=== PATIENT | female | born 2000 | race Caucasian/White ===

== ENCOUNTER 2023-04-17 19:22 | Emergency (ER) | payer MEDICAID ==
[2023-04-17 19:46] VITALS: RESP 14; TEMP 98.1
[2023-04-17 19:59] VITALS: O2SAT 100
[2023-04-17 20:08] LABS: HCG URINE TEST POSITIVE (NEGATIVE)
--- NOTE | 2023-04-17 20:14 | ERPHSYRPT ---
- History of Present Illness Time Seen by Provider: 04/17/23 19:30 Source: patient Exam Limitations: no limitations Patient Subjective Stated Complaint: pt states I took 3 test and they are all positive. I don't believe it is real and want a blood test. Triage Nursing Assessment: pt ambulated into the er; pt is axo x4; pt is tearful; c/o ; skin PDW; no respiratory distress present; abd is flat, soft, non-tender; active bowel sounds in all quads; vitals wnl Physician History: Patient is in our ED for confirmatory test. Patient states that she missed her last menstrual period. She is not on control. Patient had 3 positive test at home. Patient admits to unprotected intercourse with her boyfriend. Patient has no symptomology. No pain. No nausea no vomiting no diaphoresis. No diarrhea. No rash. No vaginal discharge. Patient simply wants a confirmatory test. Portions of this note were created with voice recognition technology. There may be grammatical, spelling, punctuation or sound alike errors Timing/Duration: today Severity: moderate Modifying Factors: Improves With: nothing Associated Symptoms: denies symptoms Allergies/Adverse Reactions: cefaclor [From Ceclor] Allergy (Mild, Verified 04/17/23 19:31) Home Medications: Duloxetine HCl 60 mg PO DAILY 04/17/23 [History] Hydroxyzine HCl 25 mg [Atarax 25 mg] 25 mg PO DAILY 04/17/23 [History] Quetiapine Fumarate 50 mg PO HS 04/17/23 [History] Hx Tetanus, Diphtheria Vaccination/Date Given: Yes Hx Influenza Vaccination/Date Given: No Hx Pneumococcal Vaccination/Date Given: No Immunizations Up to Date: Yes Travel Risk - International Travel Have you traveled outside of the country in past 3 weeks: No - Coronavirus Screening Are you exhibiting any of the following symptoms?: No Close contact with a COVID-19 positive Pt in past 14-21 Days: No - Vaccine Status Have you recieved a Covid-19 vaccination: No - Review of Systems Constitutional: No Symptoms, No Fever, No Chills Eyes: No Symptoms Ears, Nose, & Throat: No Symptoms Respiratory: No Symptoms, No Cough, No Dyspnea Cardiac: No Symptoms, No Chest Pain, No Edema, No Syncope Abdominal/Gastrointestinal: No Symptoms, No Abdominal Pain, No Nausea, No Vomiting, No Diarrhea Genitourinary Symptoms: No Symptoms, No Dysuria Musculoskeletal: No Symptoms, No Back Pain, No Neck Pain Skin: No Symptoms, No Rash Neurological: No Symptoms, No Dizziness, No Focal Weakness, No Sensory Changes Psychological: No Symptoms Endocrine: No Symptoms Hematologic/Lymphatic: No Symptoms Immunological/Allergic: No Symptoms All Other Systems: Reviewed and Negative - Past Medical History Pertinent Past Medical History: Yes Neurological History: No Pertinent History ENT History: No Pertinent History Cardiac History: Congenital Heart Disease Respiratory History: No Pertinent History Endocrine Medical History: No Pertinent History Musculoskeletal History: No Pertinent History GI Medical History: No Pertinent History History: No Pertinent History Psycho-Social History: Anxiety, Depression Female Reproductive Disorders: No Pertinent History - Past Surgical History Past Surgical History: Yes Other Surgical History: tonsil/adn, edna tubes in ear as a child - Social History Smoking Status: Light tobacco smoker Exposure to second hand smoke: Yes Drug Use: marijuana Patient Lives Alone: No - Female History Hx Now: No (unsure, test positiv) - Nursing Vital Signs Nursing Vital Signs: Initial Vital Signs Blood Pressure 161/97 04/17/23 19:23 O2 Sat by Pulse Oximetry 91 L 04/17/23 19:23 Pain Scale Pain Intensity 0 - Physical Exam General Appearance: no apparent distress, alert Eye Exam: PERRL/EOMI, eyes nml inspection Ears, Nose, Throat Exam: normal ENT inspection, TMs normal, pharynx normal, moist mucous membranes Neck Exam: normal inspection, non-tender, supple, full range of motion Respiratory Exam: normal breath sounds, lungs clear, No respiratory distress Cardiovascular Exam: regular rate/rhythm, normal heart sounds, normal peripheral pulses Gastrointestinal/Abdomen Exam: soft, normal bowel sounds, No tenderness, No mass Back Exam: normal inspection, normal range of motion, No CVA tenderness, No vertebral tenderness Extremity Exam: normal inspection, normal range of motion, pelvis stable Neurologic Exam: alert, oriented x 3, cooperative, normal mood/affect, nml cerebellar function, nml station & gait, sensation nml, No motor deficits Skin Exam: normal color, warm, dry, No rash Lymphatic Exam: No adenopathy SpO2 Interpretation: normal SpO2: 100 O2 Delivery: Room Air - Course Nursing assessment & vital signs reviewed: Yes Ordered Tests: Active Orders 24 hr Category Date Time Status HCG QUALITATIVE, URINE Stat Lab 04/17/23 20:01 Completed Lab/Rad Data: Laboratory Results 04/17/23 Range/Units 20:01 Urine HCG, Qual POSITIVE (NEGATIVE) - Progress Progress: improved Progress Note: 22-year-old female presents to our ED for confirmation of . Patient's urine positive. Patient will follow-up with primary care doctor for initiation of vitamins and outpatient monitoring/follow-up. Patient otherwise asymptomatic. Portions of this note were created with voice recognition technology. There may be grammatical, spelling, punctuation or sound alike errors Complexity problems addressed is low acute uncomplicated No critical care time Complex of data reviewed and analyzed is limited. Test ordered. Test reviewed. Clinical correlation made between findings and history and physical examination. Risk of complication and a risk morbidity/mortality patient management is low. Patient discharged home. Time spent to discharge patient approximately 10 minutes. Plan of care established for shared decision making. No social determinants of health presents impede follow-up. Patient agrees to follow-up with her primary care doctor within 48 hours for reevaluation. Portions of this note were created with voice recognition technology. There may be grammatical, spelling, punctuation or sound alike errors 04/17/23 20:15 Counseled pt/family regarding: lab results, diagnosis - Departure Departure Disposition: Home Clinical Impression: Condition: Stable Critical Care Time: No Referrals: KAYLA BELLA NP [Primary Care Provider] - Follow up/PCP as directed Additional Instructions: Discharge/Care Plan KENDAL HERMAN JOSH was seen on 04/17/23 in the Emergency Room. The patient was counseled regarding Diagnosis,Lab results, Imaging studies, need for follow up and when to return to the Emergency Room. Prescriptions given: Discharge Note I have spoken with the patient and/or caregivers. I have explained the patient's condition, diagnosis and treatment plan based on the information available to me at this time. I have answered the patient's and/or caregiver's questions and addressed any concerns. The patient and/or caregivers have as good understanding of the patient's diagnosis, condition and treatment plan as can be expected at this point. The vital signs have been stable. The patient's condition is stable and appropriate for discharge from the emergency department. The patient will pursue further outpatient evaluation with the primary care physician or other designated or consulting physician as outlined in the discharge instructions. The patient and/or caregivers are agreeable to this plan of care and follow-up instructions have been explained in detail. The patient and/or caregivers have received these instruction. The patient/and or caregivers are aware that any significant change in condition or worsening of symptoms should prompt an immediate return to this or the closest emergency department or call 911.
[2023-04-17 20:45] VITALS: BP 123/79; PULSE 83
== END 2023-04-17 20:49 | disposition home or self-care (01) ==
LOC: ED 19:22
DX: Z32.01 Encounter for pregnancy test, result positive (principal); Z79.899 Other long term (current) drug therapy; Z28.310 Unvaccinated for COVID-19; Z72.0 Tobacco use
CPT/HCPCS: 81025; 99282

== ENCOUNTER 2025-05-03 06:31 | Day surgery (SDC) | payer OTHER ==
[2025-05-03] MEDS: Lactated Ringers 1,000 ML IV SCH (07:00)
[2025-05-03 07:14] LABS: HCG URINE TEST NEGATIVE (NEGATIVE)
[2025-05-03] MEDS ORDERED: propofoL IV ONE (07:53)
[2025-05-03] MEDS ORDERED: Versed 2 MG/2 ML Injection ONE (07:53)
[2025-05-03 08:50] VITALS: RESP 18
[2025-05-03 09:06] VITALS: BP 98/50; PULSE 79; TEMP 97.4; O2SAT 100
--- NOTE | 2025-05-04 10:43 | OP ---
SURGERY DATE/TIME: 05/03/2025 [id number] PREOPERATIVE DIAGNOSIS: Chronic nausea. POSTOPERATIVE DIAGNOSIS: Mild gastritis. PROCEDURE: Esophagogastroduodenoscopy with cold forceps biopsy of gastric antrum. SURGEON: Jasvir Dover MD ANESTHESIA: Medication given by the anesthesia department. INDICATIONS: The patient is a 24-year-old white female who presents now for endoscopic evaluation. She reports she has had chronic nausea over the past year. She is taking some Zofran. She has had no other significant studies done according to her. She did have a previous endoscopy approximately 2 years ago, at which time, she reports there were possibly some polyps that were found. The patient was felt to need to have endoscopic evaluation. She was apprised of risks of the procedure including risk of perforation, phlebitis, untoward reaction to medication, bleeding, and missed lesions. The patient verbalized her understanding and desired to have procedure performed. DESCRIPTION OF PROCEDURE AND FINDINGS: The patient was given medication by the anesthesia department. She had continuous pulse oximetry, ECG monitoring, and intermittent blood pressure monitoring during the examination. She was placed in left lateral decubitus position. The patient had a bite block placed. A flexible Olympus gastroscope was used to intubate the oropharynx. A view of the larynx was obtained and was normal. The scope was easily introduced into the esophagus which appeared to be normal throughout its length. The stomach was entered where normal gastric rugal folds were seen. These distended nicely with insufflation of air. The scope was passed along the greater curvature of the stomach and passed to the antrum. In these areas, there was noted to be mild gastritis. The pylorus was encountered and intubated. Duodenum was inspected and found to be normal. Scope was withdrawn toward the stomach again. Retroflexed view was obtained of the lesser curvature, fundus, and cardia regions of the stomach. These appeared to be essentially normal. The scope was then redirected toward the gastric antrum where biopsies were obtained using cold forces technique to evaluate for the possibility of H. pylori gastritis. With no other mucosal lesions being encountered, the scope was removed from the patient who tolerated the procedure well and sent back to outpatient recovery in good condition.
== END 2025-05-03 09:14 | disposition home or self-care (01) ==
LOC: SDC 06:31
PROVIDERS: ATTEND Family Medicine
DX: K29.70 Gastritis, unspecified, without bleeding (principal); R11.0 Nausea